=== PATIENT | female | born 1945 | race Caucasian/White ===

== ENCOUNTER → 2023-11-15 14:49 | Outpatient (REF) | payer OTHER, SELFPAY | LOC: WDC 14:49 | PROVIDERS: ATTENDING PHYSICIAN Internal Medicine | DX: Z12.31 Encounter for screening mammogram for malignant neoplasm of breast (principal); M25.532 Pain in left wrist | CPT/HCPCS: 73110; 73130; 77063; 77067 ==

== ENCOUNTER → 2024-04-16 15:06 | Outpatient (REF) | payer OTHER, SELFPAY ==
[2024-04-16 16:39] LABS: Urine Albumin Negative (Neg - Trace); Urine Bilirubin Negative (Negative); Urine Character Clear (Clear); Urine Color Yellow; Urine Glucose Negative (Negative); Urine Ketone Negative (Negative); Urine Leukocyte Trace (Negative); Urine Nitrite Negative (Negative); Urine Occult Blood Negative (Negative); Urine Urobilinogen Negative (Neg - 1+)
[2024-04-16 17:03] LABS: ALT (SGPT) 29 U/L (0-35); AST (SGOT) 33 U/L (14-36); Albumin 4.5 g/dl (3.5-5.0); Alkaline Phosphatase 107 U/L (38-126); Blood Urea Nitrogen 27 mg/dl (7-17); Carbon Dioxide 19 mmol/L (22-30); Chloride 107 mmol/L (98-107); Glucose 82 mg/dl (70-99); Iron 94 ug/dl (37-170); Sodium 139 mmol/L (135-145); eGFR > 60.00
[2024-04-16 17:06] LABS: Urine Red Blood Cell 0-2 /HPF (0-2)
[2024-04-16 17:13] LABS: Percent Saturation 31 % (20-50); Total Iron Binding Capacity 303 ug/dl (265-497)
[2024-04-16 17:14] LABS: C-Reactive Protein < 5.00 mg/L (0.0-10.00)
[2024-04-16 17:34] LABS: Free T4 1.17 ng/dl (0.78-2.19); Vitamin D, 25-OH*** 38.3 ng/mL (30-80)
[2024-04-16 17:47] LABS: TSH 2.12 uIU/ml (0.47-4.68)
[2024-04-16 17:51] LABS: Ferritin 58.4 ng/ml (11.1-264.0)
[2024-04-16 17:52] LABS: Erythrocyte Sed Rate 15 mm/hour (0-20)
[2024-04-16 18:15] LABS: % Eosinophils 4.7 % (0-6); % Immature Granulocytes 0.4 % (0-0.5); % Lymphocytes 35.8 % (20.5-51.1); % Monocytes 9.7 % (1.7-9.3); % Neutrophils 48.4 % (42.2-75.2); Absolute Basophils 0.1 10^3/uL (0-0.2); Absolute Eosinophils 0.3 10^3/uL (0-0.7); Absolute Lymphocytes 2.6 10^3/uL (1.2-3.4); Absolute Monocytes 0.7 10^3/uL (0.1-0.6); Absolute Neutrophils 3.5 10^3/uL (1.4-6.5); Hematocrit 40.1 % (37.0-47.0); Hemoglobin 13.7 g/dL (12.0-16.0); Mean Corp Hgb Conc. 34.2 g/dL (33.0-37.0); Mean Corpuscular Hgb 27.7 pg (27.0-31.0); Mean Corpuscular Volume 81.2 fL (81.0-99.0); Nucleated Red Blood Cells % 0 %; Red Blood Cell Count 4.94 10^6/uL (4.20-5.40); Red Cell Dist. Width 13.7 % (11.5-14.5); White Blood Cell Count 7.2 10^3/uL (4.8-10.8)
[2024-04-17 11:00] LABS: Complement C3 120 mg/dl (88-165)
[2024-04-18 15:23] LABS: Lyme Antibody Screen, EIA Negative (Negative); Rheumatoid Agglutinin Less Than 10 IU (<10 IU)
[2024-04-18 21:25] LABS: CCP Antibody IgG/IgA 2 Units (0-19)
[2024-04-18 23:15] LABS: ANA, IgG Reflex to HEp-2 None Detected (None Detected)
[2024-04-19 01:47] LABS: SSA 52 (Ro)(ENA) Ab, IgG 4 AU/mL (0-40); SSA 60 (Ro)(ENA) Ab, IgG 3 AU/mL (0-40); SSB (La)(ENA) Ab, IgG 0 AU/mL (0-40)
== END ==
LOC: REG 15:06
PROVIDERS: ATTENDING PHYSICIAN Physician Assistant; FAMILY PHYSICIAN Internal Medicine
DX: A69.20 Lyme disease, unspecified (principal); E55.9 Vitamin D deficiency, unspecified; K11.7 Disturbances of salivary secretion; M06.4 Inflammatory polyarthropathy; M06.9 Rheumatoid arthritis, unspecified; M35.00 Sjogren syndrome, unspecified; M35.9 Systemic involvement of connective tissue, unspecified; M79.7 Fibromyalgia
CPT/HCPCS: 36415; 80053; 81003; 81015; 82306; 82728; 83540; 83550; 84439; 84443; 85025; 85652; 86038; 86140; 86160; 86200; 86235; 86430; 86618

== ENCOUNTER → 2024-06-05 14:46 | Outpatient (REF) | payer OTHER, SELFPAY ==
[2024-06-05 16:37] LABS: % Basophils 0.8 % (0-2); % Eosinophils 6.7 % (0-6); % Immature Granulocytes 0.4 % (0-0.5); % Lymphocytes 30.8 % (20.5-51.1); % Monocytes 10.3 % (1.7-9.3); Absolute Basophils 0.1 10^3/uL (0-0.2); Absolute Eosinophils 0.5 10^3/uL (0-0.7); Absolute Lymphocytes 2.3 10^3/uL (1.2-3.4); Absolute Monocytes 0.8 10^3/uL (0.1-0.6); Absolute Neutrophils 3.8 10^3/uL (1.4-6.5); Hemoglobin 14.3 g/dL (12.0-16.0); Mean Corp Hgb Conc. 32.5 g/dL (33.0-37.0); Mean Corpuscular Hgb 28.2 pg (27.0-31.0); Mean Corpuscular Volume 86.8 fL (81.0-99.0); Mean Platelet Volume 9.5 fL (7.4-10.4); Nucleated Red Blood Cells % 0 %; Platelet Count 328 10^3/uL (130-400); Red Blood Cell Count 5.07 10^6/uL (4.20-5.40); Red Cell Dist. Width 13.6 % (11.5-14.5); White Blood Cell Count 7.5 10^3/uL (4.8-10.8)
[2024-06-05 23:24] LABS: IgA 100 mg/dl (70-400); IgG 906 mg/dl (700-1600); IgM 73 mg/dl (40-230)
[2024-06-07 21:58] LABS: Alternaria tenuis <0.10 kU/L (<=0.34); Aspergillus fumigatus <0.10 kU/L (<=0.34); Bermuda Grass <0.10 kU/L (<=0.34); Birch Tree <0.10 kU/L (<=0.34); Box Elder/Maple Tree <0.10 kU/L (<=0.34); Cat Epithelium/Dander <0.10 kU/L (<=0.34); Common Pigweed <0.10 kU/L (<=0.34); Common/Short Ragweed <0.10 kU/L (<=0.34); Cottonwood Tree <0.10 kU/L (<=0.34); Dermatophagoides farinae 0.29 kU/L (<=0.34); Dermatophagoides pteronyssinus 0.27 kU/L (<=0.34); Dog Dander <0.10 kU/L (<=0.34); Elm Tree <0.10 kU/L (<=0.34); German Cockroach 0.23 kU/L (<=0.34); Hormodendrum <0.10 kU/L (<=0.34); IgE 52 kU/L (<=214); Mountain Cedar Tree <0.10 kU/L (<=0.34); Mouse Epithelium <0.10 kU/L (<=0.34); Mucor racemosus <0.10 kU/L (<=0.34); Mugwort Weed <0.10 kU/L (<=0.34); Oak Tree <0.10 kU/L (<=0.34); Penicillium notatum <0.10 kU/L (<=0.34); Sheep Sorrel Weed <0.10 kU/L (<=0.34); Sycamore Tree <0.10 kU/L (<=0.34); Timothy Grass <0.10 kU/L (<=0.34); Walnut Tree <0.10 kU/L (<=0.34); White Ash Tree <0.10 kU/L (<=0.34); White Mulberry Tree <0.10 kU/L (<=0.34)
[2024-06-08 10:10] LABS: Diptheria Antibody, IgG 0.2 IU/mL; Tetanus Antibody, IgG 0.4 IU/mL
== END ==
LOC: REG 14:46
PROVIDERS: ATTENDING PHYSICIAN Student in an Organized Health Care Education/Training Program; FAMILY PHYSICIAN Internal Medicine
DX: J31.0 Chronic rhinitis (principal); J32.9 Chronic sinusitis, unspecified; R51.9 Headache, unspecified
CPT/HCPCS: 36415; 82784; 82785; 85025; 86003; 86317

== ENCOUNTER → 2024-10-24 15:26 | Outpatient (REF) | payer OTHER, SELFPAY ==
[2024-10-24 17:18] LABS: % Immature Granulocytes 0.5 % (0-0.5); % Lymphocytes 31.4 % (20.5-51.1); % Monocytes 10.1 % (1.7-9.3); Absolute Basophils 0.1 10^3/uL (0-0.2); Absolute Eosinophils 0.4 10^3/uL (0-0.7); Absolute Lymphocytes 1.9 10^3/uL (1.2-3.4); Absolute Monocytes 0.6 10^3/uL (0.1-0.6); Hematocrit 41.8 % (37.0-47.0); Hemoglobin 13.7 g/dL (12.0-16.0); Mean Corp Hgb Conc. 32.8 g/dL (33.0-37.0); Mean Corpuscular Hgb 27.6 pg (27.0-31.0); Mean Corpuscular Volume 84.3 fL (81.0-99.0); Mean Platelet Volume 9.6 fL (7.4-10.4); Nucleated Red Blood Cells % 0 %; Platelet Count 305 10^3/uL (130-400); Red Blood Cell Count 4.96 10^6/uL (4.20-5.40); Red Cell Dist. Width 13.2 % (11.5-14.5)
[2024-10-24 17:33] LABS: Blood Urea Nitrogen 22 mg/dl (7-17); Carbon Dioxide 20 mmol/L (22-30); Chloride 103 mmol/L (98-107); Glucose 93 mg/dl (70-99); Potassium 4.8 mmol/L (3.5-5.1); Sodium 134 mmol/L (135-145); eGFR > 60.00
== END ==
LOC: REG 15:26
PROVIDERS: ATTENDING PHYSICIAN Specialist; FAMILY PHYSICIAN Internal Medicine
DX: Z01.818 Encounter for other preprocedural examination (principal)
CPT/HCPCS: 36415; 80048; 85025; 93005

== ENCOUNTER 2024-11-24 15:47 | Emergency (ER) | payer OTHER, SELFPAY ==
[2024-11-24 15:48] VITALS: BP 147/72
--- NOTE | 2024-11-24 18:27 | ED.GENMED ---
History of Present Illness
General
Chief Complaint: Bowel Problem
Time Seen by Provider: 11/24/24 16:14
History of Present Illness
History of Present Illness:
79-year-old female presents the emergency department for evaluation of constipation. 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 She admits she is not using the recommended stool softeners or
laxatives due to prior history of loose stools and fear of having diarrhea given her limited mobility. Denies any abdominal pain, still passing flatus.
Past History
Past History
ED Past Medical History: None
ED Past Surgical History: None
Social History
Living: with family
Review of Systems
Review of Systems
Allergies reviewed?: Yes
All Other Systems: ROS reviewed and negative except as documented in HPI and ROS
Phy Exam
Physical Exam
Physical Exam:
GEN: Well appearing, NAD, WDWN
HEENT: Oral mucosa moist, no scleral icterus
Cardiac: Regular rate
Lung: No respiratory distress, no tachypnea
Rectal: Large soft stool in the rectal vault, gently disimpacted
MSK: No gross deformity or injuries
Skin: Good color, no pallor or jaundice, no rashes
Neuro: AO x3, moves all extremities freely
Psych: Calm, cooperative
Course
Orders/Labs/Results
Orders:
Orders
11/24/24 18:28
Magnesium Citrate [Citroma] 300 ml PO ONCE ONE
Vital Signs
Initial and Last Documented VS:
Initial Vital Signs
Temp Pulse Resp BP Pulse Ox
99.8 F 70 20 147/72 96
11/24/24 15:48 11/24/24 15:48 11/24/24 15:48 11/24/24 15:48 11/24/24 15:48
Last Documented Vital Signs
Temp Pulse Resp BP Pulse Ox
99.8 F 70 20 147/72 96
11/24/24 15:48 11/24/24 15:48 11/24/24 15:48 11/24/24 15:48 11/24/24 15:48
MDM/Problems Addressed
MDM/Problems Addressed:
Patient was disimpacted and then given an enema with good results. Discussed need for bowel regimen while on opioids
*Critical Care Note
Total Time (30-74mins, 75-104mins- exclusive of procedures): Not Applicable
ED Attending Note
-
Portions of this chart may have been created with voice recognition software.� Occasional wrong word or��sound alike� substitutions may have occurred due to the inherent limitations of voice recognition software.
Discharge Plan
Departure
Patient Disposition: Home (Routine Discharge)
Date of Disposition: 11/24/24
Time of Disposition: 18:27
Patient with high blood pressure during this ER visit?: No
Discharge Problem:
Acute constipation
Instructions: Constipation, Adult (DC)
Referrals:
Darek Angel MD [Family Provider] -
Interventions
Interventions:
*Risk Screen - Suicide Last Done: 11/24/24 16:50
*General Assessment Last Done: 11/24/24 16:50
*Neglect/Abuse Screening Last Done: 11/24/24 16:50
*ED- Fall Risk Assessment Last Done: 11/24/24 16:50
*Nursing Disposition Last Done: 11/24/24 18:45
HY-Ybtcmf-Prywystmda Assessment Last Done: 11/24/24 16:50
Discharge Date and Time
Discharge Date/Time: 11/24/24 18:45
Print Language: DUTCH
[2024-11-24] MEDS: CITROMA 300 ML PO (18:43)
== END 2024-11-24 18:45 | disposition home or self-care (01) ==
LOC: EMR 15:47
PROVIDERS: EMERGENCY PHYSICIAN Emergency Medicine; FAMILY PHYSICIAN Internal Medicine
DX: K59.09 Other constipation (principal); Z96.652 Presence of left artificial knee joint; Z79.891 Long term (current) use of opiate analgesic
CPT/HCPCS: 99283